=== PATIENT | female | born 1985 | race African-American/Black ===

== ENCOUNTER 2017-04-10 08:20 | Emergency (ER) | payer SELFPAY ==
[2017-04-10 08:47] LABS: #Eosinphils 0.4 thou/uL (0.0-0.7); #Lymphocytes 2.6 thou/uL (1.20-3.40); #Monocytes 0.7 thou/uL (0.11-0.59); #Neutrophils 2.7 thou/uL (1.40-6.50); %Basophils 0.8 % (0.0-1.0); %Eosinophils 6.2 % (0.0-10.0); %Lymphocytes 40.4 % (21.0-51.0); %Monocytes 10.3 % (0.0-10.0); Hematocrit 40.1 % (36.0-47.0); Mean Platelet Volume 7.8 fL (7.4-10.4); Red Blood Cell (RBC) Count 4.49 mill/uL (4.20-5.40); White Blood Cell (WBC) Count 6.4 thou/uL (4.8-10.8)
[2017-04-10 09:13] LABS: ALT (SGPT) 8 U/L (8-55); AST (SGOT) 14 U/L (5-34); Alkaline Phosphatase 62 U/L (40-150); Anion Gap 12 mmol/L (10-20); BUN (Urea Nitrogen) 10 mg/dL (7.0-18.7); Bilirubin, Total 0.4 mg/dL (0.2-1.2); CK (CPK) 119 U/L (29-168); Calc. Creatinine Clearance 0 mL/min (70-130); Calcium 9.3 mg/dL (7.8-10.44); Carbon Dioxide 26 mmol/L (22-29); Chloride 104 mmol/L (98-107); Estimated GFR-MDRD Greater than 90; Globulin 3.7 g/dL (2.4-3.5); Lipase 58 U/L (8-78); Protein, Total 7.5 g/dL (6.0-8.3)
[2017-04-10 09:17] LABS: Troponin I Less than 0.010 ng/mL (< 0.028)
--- NOTE | 2017-04-10 09:30 | RAD ---
PORTABLE CHEST: History: Chest pain, shortness of breath. FINDINGS: Lungs are clear. No infiltrate. Heart and mediastinum unremarkable. IMPRESSION: No acute finding. POS: [facility]
--- NOTE | 2017-04-10 10:30 | CT ---
CT ANGIOGRAM THORX WITH IV CONTRAST AND 3D RECONSTRUCTIONS: Date: 04/10/17 HISTORY: Dyspnea and left-sided chest pain which started last night. COMPARISON: CT thorax on 10/19/14. FINDINGS: There are slight ground-glass densities at each lung base, greater on the left, probably related to volume loss. Lungs are otherwise clear. Thoracic aorta is normal in caliber without evidence of an aortic dissection. The heart is mildly enlarged. No filling defects are seen in the pulmonary arteries to suggest pulmonary embolus. Mediastinal structures have a normal appearance. There is decreased density seen in the anterior sup erior mediastinum which may be related to residual thymic tissue. Visualized upper abdomen has a normal CT appearance. There has been no interval change from prior exam. IMPRESSION: 1. No CT evidence of a pulmonary embolus. 2. Mild cardiomegaly. POS: [facility]
[2017-04-10] MEDS ORDERED: ISOVUE-370 76%-LOCM 1 ML ONE (16:03)
== END 2017-04-10 11:24 | disposition home or self-care (01) ==
LOC: ERS 08:20
DX: R07.89 Other chest pain (principal); I10 Essential (primary) hypertension; F41.9 Anxiety disorder, unspecified
CPT/HCPCS: 71010; 71275; 80053; 82550; 82553; 83690; 83880; 84484; 84703; 85025; 85379; 93005; 96360; 96361

== ENCOUNTER 2017-08-11 03:07 | Emergency (ER) | payer SELFPAY ==
[2017-08-11 03:45] LABS: #Basophils 0.1 thou/uL (0.0-0.2); #Eosinphils 0.2 thou/uL (0.0-0.7); #Lymphocytes 2.5 thou/uL (1.20-3.40); #Monocytes 0.6 thou/uL (0.11-0.59); #Neutrophils 4.7 thou/uL (1.40-6.50); %Basophils 1.2 % (0.0-1.0); %Eosinophils 2.8 % (0.0-10.0); %Lymphocytes 30.8 % (21.0-51.0); %Monocytes 7.8 % (0.0-10.0); %Neutrophils 57.5 % (42.0-75.0); Hemoglobin 12.2 g/dL (12.0-16.0); Mean Corpuscular Hemoglobin 29.2 pg (27.0-31.0); Mean Corpuscular Volume 88.6 fl (81.0-99.0); Mean Platelet Volume 7.9 fL (7.4-10.4); Platelet Count 311 thou/uL (130-400); RBC Distribution Width 12.7 % (11.5-14.5); Red Blood Cell (RBC) Count 4.17 mill/uL (4.20-5.40); White Blood Cell (WBC) Count 8.1 thou/uL (4.8-10.8)
[2017-08-11 04:07] LABS: ALT (SGPT) 7 U/L (8-55); AST (SGOT) 12 U/L (5-34); Albumin 4.1 g/dL (3.5-5.0); Alkaline Phosphatase 72 U/L (40-150); Anion Gap 11 mmol/L (10-20); BUN (Urea Nitrogen) 9 mg/dL (7.0-18.7); Bilirubin, Total 0.3 mg/dL (0.2-1.2); CK (CPK) 108 U/L (29-168); Calc. Creatinine Clearance 0 mL/min (70-130); Calcium 9.6 mg/dL (7.8-10.44); Carbon Dioxide 25 mmol/L (22-29); Chloride 106 mmol/L (98-107); Estimated GFR-MDRD Greater than 90; Globulin 3.8 g/dL (2.4-3.5); Glucose 91 mg/dL (70-105); Potassium 3.4 mmol/L (3.5-5.1); Protein, Total 7.9 g/dL (6.0-8.3); Sodium 139 mmol/L (136-145)
[2017-08-11 04:10] LABS: CKMB 1.1 ng/mL (0-6.6); Troponin I Less than 0.010 ng/mL (< 0.028)
[2017-08-11 05:02] LABS: Bilirubin Negative (Negative); Blood, Urine Negative (Negative); Glucose, Urine (Dipstick) Negative (Negative); Leukocyte Negative (Negative); Nitrite Negative (Negative); Protein, Urine (Dipstick) Negative (Neg-Trace); Urobilinogen 0.2 mg/dL (0.2-1.0)
[2017-08-11 05:04] LABS: Clarity Clear (Clear)
[2017-08-11 05:05] LABS: Pregnancy Test - Urine (BHCG) Negative (Negative); Pregu Control Background? CLEAR/WHITE (CLR/WHITE); Pregu Control Bar Appear? YES (CONTROL BAR); Specific Gravity 1.002 (1.002-1.036); Specific Gravity, Urine 1.002 (1.002-1.036)
[2017-08-11] MEDS ORDERED: Aspirin 325 MG TAB ONE (05:57)
[2017-08-11] MEDS ORDERED: Lidocaine Viscous Sol 2% 15 ml UD Cup ONE (06:06)
[2017-08-11] MEDS ORDERED: Milk Of Magnesia 30 ML UDCUP ONE (06:06)
[2017-08-11 06:20] LABS: Troponin I 0.022 ng/mL (< 0.028)
[2017-08-11] MEDS ORDERED: Ketorolac Tromethamine 60 MG/2 ML VIAL ONE (06:20)
--- NOTE | 2017-08-11 08:53 | RAD ---
CHEST 1 VIEW: HISTORY: Chest pain. COMPARISON: 04/10/17. FINDINGS: Cardiac silhouette is magnified by projection. Pulmonary vasculature is unremarkable. Mediastinum i s midline. There is no lobar consolidation or evidence of pneumothorax. IMPRESSION: No active cardiopulmonary abnormalities are demonstrated. POS: [facility]
== END 2017-08-11 07:09 | disposition home or self-care (01) ==
LOC: ERS 03:07
DX: R07.89 Other chest pain (principal); I10 Essential (primary) hypertension; F41.9 Anxiety disorder, unspecified; F17.200 Nicotine dependence, unspecified, uncomplicated
CPT/HCPCS: 36415; 71045; 80053; 81003; 81025; 82553; 84484; 85025; 85379; 93005; 96372; J1885

== ENCOUNTER 2017-11-05 06:42 | Emergency (ER) | payer BC ==
[2017-11-05 07:20] LABS: Hemoglobin 11.6 g/dL (12.0-16.0); Mean Corpuscular HGB CONC 32.4 g/dL (32.0-36.0); Mean Corpuscular Hemoglobin 28.7 pg (27.0-31.0); Mean Corpuscular Volume 88.7 fl (81.0-99.0); Mean Platelet Volume 8.2 fL (7.4-10.4); Platelet Count 237 thou/uL (130-400); RBC Distribution Width 13.4 % (11.5-14.5); Red Blood Cell (RBC) Count 4.03 mill/uL (4.20-5.40); White Blood Cell (WBC) Count 4.6 thou/uL (4.8-10.8)
[2017-11-05 07:38] LABS: Band 8 % (5-11); Eosinophils 3 % (0-10); Lymphocytes 40 % (21-51); MDiff Complete? YES; Monocytes 15 % (0-10); Neutrophil 32 % (42-75); RBC Morphology Normal; Reactive Lymphocytes 2 % (0-10)
[2017-11-05 07:40] LABS: ALT (SGPT) 17 U/L (8-55); AST (SGOT) 25 U/L (5-34); Albumin 3.7 g/dL (3.5-5.0); Alkaline Phosphatase 63 U/L (40-150); Anion Gap 11 mmol/L (10-20); BUN (Urea Nitrogen) 12 mg/dL (7.0-18.7); Bilirubin, Total 0.2 mg/dL (0.2-1.2); Calc. Creatinine Clearance 0 mL/min (70-130); Calcium 8.8 mg/dL (7.8-10.44); Carbon Dioxide 27 mmol/L (22-29); Chloride 105 mmol/L (98-107); Estimated GFR-MDRD Greater than 90; Globulin 3.4 g/dL (2.4-3.5); Glucose 98 mg/dL (70-105); Lipase 61 U/L (8-78); Potassium 3.8 mmol/L (3.5-5.1); Protein, Total 7.1 g/dL (6.0-8.3); Sodium 139 mmol/L (136-145)
[2017-11-05 09:14] LABS: Bilirubin Negative (Negative); Blood, Urine Large (Negative); Clarity CLEAR (Clear); Glucose, Urine (Dipstick) Negative (Negative); Leukocyte Negative (Negative); Nitrite Negative (Negative); Protein, Urine (Dipstick) 30 mg/dL (Neg-Trace); Specific Gravity, Urine 1.029 (1.002-1.036); Urobilinogen 0.2 mg/dL (0.2-1.0)
[2017-11-05 09:16] LABS: Bacteria/HPF None Seen HPF (None Seen); Hyaline Casts/LPF 4-6 HYALINE CAST LPF (0-3 Hyaline); Pathc Cast-AUWi Flag 1.01 (0-2.49); RBC/HPF GREATER THAN 50-TNTC HPF (0-3); WBC/HPF 0-3 HPF (0-3)
[2017-11-05 09:34] LABS: Pregnancy Test - Urine (BHCG) Negative (Negative); Pregu Control Background? CLEAR/WHITE (CLR/WHITE); Pregu Control Bar Appear? YES (CONTROL BAR); Specific Gravity 1.029 (1.002-1.036)
[2017-11-05] MEDS ORDERED: Ondansetron ODT 4 MG TAB ONE (10:03)
== END 2017-11-05 10:24 | disposition home or self-care (01) ==
LOC: ERS 06:42
DX: R11.2 Nausea with vomiting, unspecified (principal); F17.200 Nicotine dependence, unspecified, uncomplicated; I10 Essential (primary) hypertension; Z79.899 Other long term (current) drug therapy
CPT/HCPCS: 36415; 80053; 81003; 81015; 81025; 83690; 85025; 96360; Q0162

== ENCOUNTER 2019-08-26 22:51 | Emergency (ER) | payer SELFPAY ==
--- NOTE | 2019-08-27 | ULT ---
EXAM: Left lower extremity venous Doppler HISTORY: Left lower extremity pain and edema. Recent long car ride. FINDINGS: Grayscale, color-flow, Doppler evaluation, spectral analysis of the left lower extremity venous struc tures is performed with 2-D imaging. The left common femoral, superficial femoral, popliteal, posterior tibial, proximal greater saphenous and profunda femoral veins are imaged. There is normal luminal compressibility, flow, and augmentation in the visualized deep venous structu res of the left lower extremity. IMPRESSION: No evidence of a deep vein thrombosis in the visualized deep venous structures left lower extremity.
== END 2019-08-27 00:15 | disposition home or self-care (01) ==
LOC: ERS 22:51
DX: M79.662 Pain in left lower leg (principal); M54.32 Sciatica, left side; I10 Essential (primary) hypertension; Z79.899 Other long term (current) drug therapy

== ENCOUNTER 2020-10-06 11:52 | Emergency (ER) | payer SELFPAY ==
[2020-10-06 13:10] LABS: #Basophils 0.1 thou/uL (0.0-0.2); #Eosinphils 0.2 thou/uL (0.0-0.7); #Lymphocytes 2.7 thou/uL (1.20-3.40); #Monocytes 0.5 thou/uL (0.11-0.59); #Neutrophils 2.9 thou/uL (1.40-6.50); %Basophils 0.8 % (0.0-1.0); %Eosinophils 2.7 % (0.0-10.0); %Lymphocytes 42.1 % (21.0-51.0); %Monocytes 8.4 % (0.0-10.0); %Neutrophils 46.1 % (42.0-75.0); Hemoglobin 11.4 g/dL (12.0-16.0); Mean Corpuscular HGB CONC 31.7 g/dL (32.0-36.0); Mean Corpuscular Hemoglobin 27.7 pg (27.0-31.0); Mean Corpuscular Volume 87.6 fL (78.0-98.0); Mean Platelet Volume 8.3 fL (7.4-10.4); Platelet Count 304 thou/uL (130-400); RBC Distribution Width 13.4 % (11.5-14.5); White Blood Cell (WBC) Count 6.4 thou/uL (4.8-10.8)
[2020-10-06 13:32] LABS: ALT (SGPT) 10 U/L (8-55); AST (SGOT) 15 U/L (5-34); Albumin 3.8 g/dL (3.5-5.0); Alkaline Phosphatase 75 U/L (40-110); Anion Gap 14 mmol/L (10-20); BUN (Urea Nitrogen) 14 mg/dL (7.0-18.7); Bilirubin, Total 0.2 mg/dL (0.2-1.2); Calc. Creatinine Clearance 0 mL/min (70-130); Calcium 9.4 mg/dL (7.8-10.44); Carbon Dioxide 23 mmol/L (22-29); Chloride 108 mmol/L (98-107); Globulin 3.3 g/dL (2.4-3.5); Glucose 88 mg/dL (70-105); Potassium 4.3 mmol/L (3.5-5.1); Protein, Total 7.1 g/dL (6.0-8.3); Sodium 141 mmol/L (136-145)
== END 2020-10-06 13:46 | disposition left against medical advice (07) ==
LOC: ERS 11:52
DX: Z53.21 Procedure and treatment not carried out due to patient leaving prior to being seen by health care provider (principal)
CPT/HCPCS: 36415; 71045; 80053; 84484; 85025; 93005

== ENCOUNTER 2021-05-14 06:10 | Emergency (ER) | payer OTHER, SELFPAY ==
[2021-05-14] MEDS ORDERED: Ondansetron PF 4 MG/2 ML Vial ONE (06:38)
[2021-05-14 06:57] LABS: #Eosinphils 0.1 thou/uL (0.0-0.7); #Lymphocytes 2.5 thou/uL (1.20-3.40); #Monocytes 0.8 thou/uL (0.11-0.59); #Neutrophils 3.5 thou/uL (1.40-6.50); %Basophils 0.4 % (0.0-1.0); %Eosinophils 1.5 % (0.0-10.0); %Lymphocytes 35.7 % (21.0-51.0); %Monocytes 12.1 % (0.0-10.0); %Neutrophils 50.3 % (42.0-75.0); Hemoglobin 11.8 g/dL (12.0-16.0); Mean Corpuscular HGB CONC 32.9 g/dL (32.0-36.0); Mean Corpuscular Hemoglobin 28.3 pg (27.0-31.0); Mean Corpuscular Volume 85.9 fL (78.0-98.0); Mean Platelet Volume 7.8 fL (7.4-10.4); Platelet Count 343 thou/uL (130-400); RBC Distribution Width 13.3 % (11.5-14.5); Red Blood Cell (RBC) Count 4.17 mill/uL (4.20-5.40); White Blood Cell (WBC) Count 6.9 thou/uL (4.8-10.8)
[2021-05-14 06:58] LABS: BHCG - Serum Negative (NEGATIVE); Pregs Control Background? CLEAR/WHITE (CLR/WHITE); Pregs Control Bar Appear? YES (CONTROL BAR)
[2021-05-14 07:13] LABS: ALT (SGPT) 11 U/L (8-55); AST (SGOT) 14 U/L (5-34); Albumin 3.9 g/dL (3.5-5.0); Alkaline Phosphatase 67 U/L (40-110); Anion Gap 13 mmol/L (10-20); BUN (Urea Nitrogen) 10 mg/dL (7.0-18.7); Bilirubin, Total 0.2 mg/dL (0.2-1.2); Calc. Creatinine Clearance 0 mL/min (70-130); Calcium 9.3 mg/dL (7.8-10.44); Carbon Dioxide 23 mmol/L (22-29); Chloride 104 mmol/L (98-107); Globulin 3.9 g/dL (2.4-3.5); Glucose 93 mg/dL (70-105); Lipase 41 U/L (8-78); Potassium 3.7 mmol/L (3.5-5.1); Protein, Total 7.8 g/dL (6.0-8.3); Sodium 136 mmol/L (136-145)
[2021-05-14 07:36] LABS: Bacteria/HPF None Seen HPF (None Seen); Bilirubin Negative (Negative); Blood, Urine Negative (Negative); Clarity Clear (Clear); Glucose, Urine (Dipstick) Normal (Negative); Ketone, Urine Negative (Negative); Leukocyte 250 Leu/uL (Negative); Nitrite Negative (Negative); Protein, Urine (Dipstick) Negative (Neg-Trace); RBC/HPF 0-3 HPF (0-3); Specific Gravity, Urine 1.023 (1.002-1.036); Urobilinogen Normal mg/dL (Less than 2)
[2021-05-14 16:42] LABS: SARS-CoV-2 PCR by NAA Not Detected (NotDetected)
== END 2021-05-14 08:30 | disposition home or self-care (01) ==
LOC: ERS 06:10
DX: R11.2 Nausea with vomiting, unspecified (principal); R19.7 Diarrhea, unspecified; R05.9 Cough, unspecified; Z20.822 Contact with and (suspected) exposure to COVID-19; I10 Essential (primary) hypertension
CPT/HCPCS: 36415; 80053; 81003; 81015; 83690; 84703; 85025; 87804; 96374; J2405; U0003; U0005

== ENCOUNTER 2024-06-12 09:39 | Emergency (ER) | payer BC, SELFPAY ==
[2024-06-12] MEDS ORDERED: Acetaminophen 500 MG TAB ONE (10:39)
[2024-06-12] MEDS ORDERED: Ipratropium/Albuterol 3 ML NEB ONE (10:39)
[2024-06-12 10:57] LABS: #Basophils 0.04 10x3/uL (0.0-0.2); %Basophils 0.6 % (0.0-1.0); %Eosinophils 1.3 % (0.0-10.0); %Lymphocytes 41.7 % (21.0-51.0); %Monocytes 9.1 % (0.0-10.0); %Neutrophils 46.9 % (42.0-75.0); Hematocrit 39.6 % (36.0-47.0); Hemoglobin 13.1 g/dL (12.0-16.0); Mean Corpuscular HGB CONC 33.1 g/dL (32.0-36.0); Mean Corpuscular Hemoglobin 28.7 pg (27.0-31.0); Mean Corpuscular Volume 86.8 fL (78.0-98.0); Platelet Count 319 10x3/uL (130-400); RBC Distribution Width 14.1 % (11.5-14.5); Red Blood Cell (RBC) Count 4.56 mill/uL (4.20-5.40)
[2024-06-12 11:07] LABS: BHCG - Serum Negative (NEGATIVE); Pregs Control Background? CLEAR/WHITE (CLR/WHITE); Pregs Control Bar Appear? YES (CONTROL BAR)
[2024-06-12 11:15] LABS: ALT (SGPT) 16 U/L (8-55); AST (SGOT) 20 U/L (5-34); Albumin 3.7 g/dL (3.5-5.0); Alkaline Phosphatase 68 U/L (40-110); Anion Gap 14 mmol/L (10-20); BUN (Urea Nitrogen) 9 mg/dL (7.0-18.7); Bilirubin, Total 0.5 mg/dL (0.2-1.2); Calc. Creatinine Clearance 0 mL/min (70-130); Calcium 9.3 mg/dL (7.8-10.44); Carbon Dioxide 24 mmol/L (22-29); Chloride 106 mmol/L (98-107); Estimated GFR 114; Glucose 99 mg/dL (70-105); Lipase 20 U/L (8-78); Potassium 3.2 mmol/L (3.5-5.1); Protein, Total 7.7 g/dL (6.0-8.3); Sodium 141 mmol/L (136-145)
[2024-06-12 11:18] LABS: Troponin I Less than 0.010 ng/mL (< 0.028)
[2024-06-12] MEDS ORDERED: Potassium Chloride 20 MEQ TAB ONE (12:27)
[2024-06-12] MEDS ORDERED: Ondansetron ODT 4 MG TAB ONE (12:28)
== END 2024-06-12 12:44 | disposition home or self-care (01) ==
LOC: ERS 09:39
DX: J20.9 Acute bronchitis, unspecified (principal); E87.6 Hypokalemia; B34.9 Viral infection, unspecified; I10 Essential (primary) hypertension; D64.9 Anemia, unspecified; Z55.6 Problems related to health literacy
CPT/HCPCS: 36415; 71045; 80053; 83690; 84484; 84703; 85025; 85379; 87428; 93005; J7620; Q0162